=== PATIENT | female | born 2000 | race Hispanic/Latino ===

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

== ENCOUNTER 2022-09-03 16:36 | Emergency (ER) | payer OTHER, SELFPAY | END 2022-09-03 17:47 | disposition home or self-care (01) | LOC: ERS 16:36 | DX: J18.1 Lobar pneumonia, unspecified organism (principal) | CPT/HCPCS: 71045; 87081; 87430 ==